=== PATIENT | male | born 1955 | race Hispanic/Latino ===

== ENCOUNTER 2017-11-21 07:33 | Day surgery (SDC) | payer OTHER ==
[~2017-11-21] VITALS: Ht 162.6 cm; Wt 93.9 kg
[~2017-11-21 07:33] MED LIST: LISI-613 PO; SODIUM CHLORIDE 0.9% 1000ML 1,000 ML IV ONE
[2017-11-21 07:50] VITALS: BP 132/75
[2017-11-21] MEDS ORDERED: PROPOFOL 10 MG/ML 20ML VIAL IV ONE ×3 (09:03→11:47)
[2017-11-21 09:25] VITALS: BP 87/41
[2017-11-21] MEDS ORDERED: ONDANSETRON HCL 4 MG/2 ML VIAL ONE (11:46)
[2017-11-21] MEDS ORDERED: MIDAZOLAM HCL 1 MG/ML 2ML VIAL ONE (11:46)
[2017-11-21] MEDS ORDERED: SUCCINYLCHOLINE 200MG/10ML SYR ONE (11:46)
[2017-11-21] MEDS ORDERED: LIDOCAINE PF 2% 5ML ABBOJECT ONE (11:46)
[2017-11-21] MEDS ORDERED: DEXAMETHASONE SOD PHOSPHATE 10MG/ML 1ML VIAL ONE (11:46)
[2017-11-21] MEDS ORDERED: GLYCOPYRROLATE 0.2 MG/ML 5 ML VIAL ONE (11:46)
[2017-11-21] MEDS ORDERED: FENTANYL CITRATE PF 50 MCG/1 ML 2ML VIAL ONE (11:47)
== END 2017-11-21 10:10 | disposition home or self-care (01) ==
LOC: DAH 07:33
PROVIDERS: ATTEND Internal Medicine Gastroenterology
DX: K29.50 Unspecified chronic gastritis without bleeding (principal); K21.9 Gastro-esophageal reflux disease without esophagitis; I10 Essential (primary) hypertension; E78.5 Hyperlipidemia, unspecified; Z90.49 Acquired absence of other specified parts of digestive tract; Z79.899 Other long term (current) drug therapy; Z86.010 Personal history of colon polyps
CPT/HCPCS: 43239; 45378; 88305; A4606; J0330; J1100; J2001; J2405; J2704 ×2; J3490; J7030; J2250; J3010

== ENCOUNTER 2018-01-02 06:37 | Day surgery (SDC) | payer OTHER ==
[~2018-01-02] VITALS: Ht 165.1 cm; Wt 93.2 kg
[2018-01-02 06:45] VITALS: BP 143/88
[2018-01-02] MEDS ORDERED: PROPOFOL 10 MG/ML 20ML VIAL IV ONE (07:45)
[2018-01-02 08:02] VITALS: BP 110/64
== END 2018-01-02 08:35 ==
LOC: ENDO 06:37 → DAH 06:37 → ENDO 08:35
PROVIDERS: ATTEND Internal Medicine Gastroenterology
DX: Z09 Encounter for follow-up examination after completed treatment for conditions other than malignant neoplasm (principal); Z98.0 Intestinal bypass and anastomosis status; K57.30 Diverticulosis of large intestine without perforation or abscess without bleeding; I10 Essential (primary) hypertension; K21.9 Gastro-esophageal reflux disease without esophagitis; E78.4 Other hyperlipidemia; Z86.010 Personal history of colon polyps; Z90.49 Acquired absence of other specified parts of digestive tract; Z79.899 Other long term (current) drug therapy; K29.50 Unspecified chronic gastritis without bleeding
CPT/HCPCS: 45378; A4606; J2704; J7030 ×2

== ENCOUNTER 2018-02-08 21:03 | Emergency (ER) | payer OTHER ==
[~2018-02-08 21:03] MED LIST changes: -SODIUM CHLORIDE 0.9% 1000ML 1,000 ML IV ONE
[2018-02-08] MEDS ORDERED: SODIUM CHLORIDE 0.9% 1000ML 1,000 ML IV ONE (21:46)
[2018-02-08] MEDS ORDERED: HYOSCYAMINE SULFATE 0.125 MG TAB.SUBL SL ONE (21:46)
[2018-02-08] MEDS ORDERED: ONDANSETRON HCL MDV 20ML 2 MG/ML VIAL ONE (21:46)
[2018-02-08 21:50] LABS: BASOPHILS % (AUTO) 0.3 % (0.0-5.0); EOSINOPHILS % (AUTO) 0.6 % (0.0-8.0); HEMATOCRIT 42.7 % (42-54); LYMPHOCYTES % (AUTO) 9.9 % (21.0-51.0); MEAN CORPUSCULAR HEMOGLOBIN 32.4 pg (27.0-33.0); MEAN CORPUSCULAR HGB CONC 35.4 g/dL (32.0-36.0); MEAN CORPUSCULAR VOLUME 91.5 fL (79-99); MONOCYTES % (AUTO) 7.4 % (3.0-13.0); NEUTROPHILS % (AUTO) 81.8 % (40.0-77.0); PLATELET COUNT (AUTO) 150 K/uL (130-400); RED BLOOD CELL COUNT(AUTO) 4.66 MIL/uL (4.50-6.20); RED CELL DISTRIBUTION WIDTH 13.9 % (11.0-15.5); WHITE BLOOD COUNT (AUTO) 7.6 K/uL (4.8-10.8)
[2018-02-08 22:14] LABS: CREATININE 0.9 mg/dL (0.5-1.5); POTASSIUM 3.8 mmol/L (3.5-5.1)
== END 2018-02-08 22:50 | disposition home or self-care (01) ==
LOC: EDH 21:03
DX: E86.0 Dehydration (principal); R10.84 Generalized abdominal pain; R19.7 Diarrhea, unspecified; Z79.899 Other long term (current) drug therapy
CPT/HCPCS: 36415; 80048; 85025; 96361; 96374; 99284; J7030

== ENCOUNTER 2021-01-26 03:54 | Emergency (ER) | payer OTHER ==
[~2021-01-26 03:54] MED LIST changes: -LISI-613 PO; +LISI20TA24 PO
== END 2021-01-26 05:50 | disposition home or self-care (01) ==
LOC: EDH 03:54
DX: I10 Essential (primary) hypertension (principal); Z90.49 Acquired absence of other specified parts of digestive tract; Z88.1 Allergy status to other antibiotic agents
CPT/HCPCS: 93005; 99281

== ENCOUNTER 2022-08-02 09:19 | Emergency (ER) | payer BC, OTHER ==
[~2022-08-02] VITALS: Ht 167.6 cm; Wt 95.3 kg
[2022-08-02] MEDS ORDERED: ACETAMINOPHEN 500 MG TABLET PO STA (09:40)
[2022-08-02 09:57] LABS: BASOPHILS % (AUTO) 1.2 % (0.0-5.0); HEMATOCRIT 43.7 % (42-54); MEAN CORPUSCULAR HEMOGLOBIN 31.1 pg (27.0-33.0); MEAN CORPUSCULAR VOLUME 94.4 fL (79-99); NEUTROPHILS % (AUTO) 60.5 % (40.0-77.0); PLATELET COUNT (AUTO) 168 K/uL (130-400); RED BLOOD CELL COUNT(AUTO) 4.63 MIL/uL (4.50-6.20); RED CELL DISTRIBUTION WIDTH 12.7 % (11.0-15.5)
[2022-08-02] MEDS ORDERED: 0.9%NACL 1000ML 1,000 ML IV ONE (10:00)
[2022-08-02 10:15] LABS: APPEARANCE,URINE CLEAR (CLEAR); BILIRUBIN,URINE NEGATIVE (NEGATIVE); COLOR,URINE LIGHT-YELLOW (YELLOW); GLUCOSE, URINE (UA) NEGATIVE (NEGATIVE); KETONES,URINE NEGATIVE (NEGATIVE); LEUKOCYTE ESTERASE ,URINE NEGATIVE Leu/uL (NEGATIVE); NITRATE,URINE NEGATIVE (NEGATIVE); OCCULT BLOOD,URINE NEGATIVE (NEGATIVE); PROTEIN,URINE NEGATIVE (NEGATIVE); UROBILINOGEN,URINE 0.2 mg/dL (0.2-1.0)
[2022-08-02 10:21] LABS: CREATININE 0.9 mg/dL (0.5-1.5); POTASSIUM 4.3 mmol/L (3.5-5.1)
[2022-08-02 10:26] LABS: TOTAL PROTEIN, SERUM 7.8 g/dL (6.0-8.3)
[2022-08-02 10:33] LABS: BACTERIA,URINE RARE /HPF (None Seen); MUCUS,URINE RARE LPF (None Seen); RBC,URINE 0-1 /HPF (0-1); SQUAMOUS EPITHELIAL CELL,UR RARE /HPF (0-2)
[2022-08-02] MEDS ORDERED: KETOROLAC 30MG VIAL (30MG/ML) IVP STA (14:30)
[2022-08-02] MEDS ORDERED: NAPR375T6 PO (15:02)
[2022-08-02 15:04] VITALS: BP 129/89
== END 2022-08-02 15:08 | disposition home or self-care (01) ==
LOC: EDH 09:19
DX: M94.0 Chondrocostal junction syndrome [Tietze] (principal); I10 Essential (primary) hypertension; Z79.1 Long term (current) use of non-steroidal anti-inflammatories (NSAID); Z88.1 Allergy status to other antibiotic agents; Z90.49 Acquired absence of other specified parts of digestive tract
CPT/HCPCS: 99284; 74176; 96374; 96361; 84484; 80053; 83690; 85025; 81001; 36415; 93005; J7030; J1885; 96360

== ENCOUNTER 2023-07-19 22:15 | Emergency (ER) | payer BC ==
[~2023-07-19] VITALS: Ht 167.6 cm; Wt 95.3 kg
[~2023-07-19 22:15] MED LIST changes: +NAPR375T6 PO
[2023-07-19 22:39] LABS: BASOPHILS # (AUTO) 0.04 K/uL (0.00-0.20); BASOPHILS % (AUTO) 0.6 % (0.0-5.0); EOSINOPHILS # (AUTO) 0.25 K/uL (0.00-0.70); EOSINOPHILS % (AUTO) 3.8 % (0.0-8.0); HEMATOCRIT 42.4 % (42-54); IMMATURE GRANULOCYTE ABSOLUTE 0.03 K/uL (0-1); LYMPHOCYTES # (AUTO) 1.9 K/uL (1.0-4.8); LYMPHOCYTES % (AUTO) 28.1 % (21.0-51.0); MEAN CORPUSCULAR VOLUME 94.2 fL (79-99); MONOCYTES # (AUTO) 0.6 K/uL (0.1-1.0); MONOCYTES % (AUTO) 8.6 % (3.0-13.0); NEUTROPHILS # (AUTO) 3.9 K/uL (1.8-7.7); NEUTROPHILS % (AUTO) 58.4 % (40.0-77.0); PLATELET COUNT (AUTO) 166 K/uL (130-400); RED CELL DISTRIBUTION WIDTH 12.9 % (11.0-15.5); WHITE BLOOD COUNT (AUTO) 6.6 K/uL (4.8-10.8)
[2023-07-19 22:49] LABS: CREATININE 1.1 mg/dL (0.5-1.5); POTASSIUM 3.7 mmol/L (3.5-5.1)
[2023-07-19 22:54] LABS: SARS-CoV-2, RNA, NAAT NEGATIVE SARS CoV-2 (NEGATIVE)
[2023-07-19 22:57] LABS: INFLUENZA TYPE A Negative For Type A (NEGATIVE); INFLUENZA TYPE B Negative For Type B (NEGATIVE)
[2023-07-19 22:59] LABS: ALBUMIN 3.7 g/dL (3.5-5.0); BILIRUBIN,TOTAL 0.2 mg/dL (0.2-1.0); MAGNESIUM 1.9 mg/dL (1.80-2.40); TOTAL PROTEIN, SERUM 7.5 g/dL (6.0-8.3)
[2023-07-19 23:01] LABS: B-TYPE NATRIURETIC PEPTIDE 28 pg/mL (0-100)
[2023-07-20 00:20] VITALS: BP 152/68; PULSE 67; RESP 19; O2SAT 97
[2023-07-20] MEDS ORDERED: OMEP40CA21 PO (00:46)
== END 2023-07-20 01:08 | disposition home or self-care (01) ==
LOC: EDH 22:15
DX: R07.89 Other chest pain (principal); I10 Essential (primary) hypertension; Z79.899 Other long term (current) drug therapy; Z88.1 Allergy status to other antibiotic agents; Z90.49 Acquired absence of other specified parts of digestive tract; Z20.822 Contact with and (suspected) exposure to COVID-19
CPT/HCPCS: 99284; 71045; 87635; 82550; 83735; 83874; 84484 ×2; 80053; 83880; 85025; 85378; 87804 ×2; 36415; 93005 ×2; C9803

== ENCOUNTER 2024-02-17 16:53 | Emergency (ER) | payer BC ==
[~2024-02-17] VITALS: Ht 167.6 cm; Wt 90.7 kg
[~2024-02-17 16:53] MED LIST changes: +OMEP40CA21 PO
[2024-02-17 17:20] LABS: BASOPHILS # (AUTO) 0.06 K/uL (0.00-0.20); EOSINOPHILS # (AUTO) 0.17 K/uL (0.00-0.70); EOSINOPHILS % (AUTO) 2.8 % (0.0-8.0); HEMATOCRIT 42.4 % (42-54); IMMATURE GRANULOCYTE ABSOLUTE 0.07 K/uL (0-1); LYMPHOCYTES # (AUTO) 1.9 K/uL (1.0-4.8); LYMPHOCYTES % (AUTO) 32.4 % (21.0-51.0); MEAN CORPUSCULAR HEMOGLOBIN 31.9 pg (27.0-33.0); MEAN CORPUSCULAR HGB CONC 34.2 g/dL (32.0-36.0); MEAN CORPUSCULAR VOLUME 93.4 fL (79-99); MONOCYTES # (AUTO) 0.4 K/uL (0.1-1.0); NEUTROPHILS # (AUTO) 3.4 K/uL (1.8-7.7); NEUTROPHILS % (AUTO) 56.6 % (40.0-77.0); PLATELET COUNT (AUTO) 196 K/uL (130-400); RED BLOOD CELL COUNT(AUTO) 4.54 MIL/uL (4.50-6.20); RED CELL DISTRIBUTION WIDTH 13.4 % (11.0-15.5)
[2024-02-17 17:46] LABS: CREATININE 1.2 mg/dL (0.5-1.3); POTASSIUM 4.1 mmol/L (3.5-5.1)
[2024-02-17 17:55] LABS: ALBUMIN 3.9 g/dL (3.5-5.0); BILIRUBIN,TOTAL 0.3 mg/dL (0.2-1.0); TOTAL PROTEIN, SERUM 7.6 g/dL (6.0-8.3)
[2024-02-17 18:30] VITALS: BP 132/69; PULSE 67; RESP 18; O2SAT 99
[2024-02-17] MEDS: 0.9%NACL 1000ML 1,000 ML IV ONE (18:40)
[2024-02-17] MEDS ORDERED: AMOX1TAB16 PO (19:07)
[2024-02-17] MEDS ORDERED: LORA10TA7 PO (19:07)
[2024-02-17] MEDS ORDERED: FLUT16H NASAL (19:07)
== END 2024-02-17 19:52 | disposition home or self-care (01) ==
LOC: EDH 16:53
DX: J32.9 Chronic sinusitis, unspecified (principal); E86.0 Dehydration; I10 Essential (primary) hypertension; Z90.49 Acquired absence of other specified parts of digestive tract; Z79.899 Other long term (current) drug therapy; Z98.890 Other specified postprocedural states; Z88.8 Allergy status to other drugs, medicaments and biological substances
CPT/HCPCS: 99284; 96360; 84484; 80053; 85025; 36415; 93005; J7030

== ENCOUNTER 2024-09-02 12:35 | Emergency (ER) | payer BC ==
[~2024-09-02] VITALS: Ht 162.6 cm; Wt 95.8 kg
[~2024-09-02 12:35] MED LIST changes: +AMOX1TAB16 PO; +FLUT16H NASAL; +LORA10TA7 PO; +NAPR-1505 PO; -NAPR375T6 PO
--- NOTE | 2024-09-02 12:43 | ERN ---
ED Note History of Present Illness Stated Complaint: CHEST PAIN Chief Complaint: Chest Pain Time Seen by MD: 12:39 Dictation: PATIENT IS A 69-YEAR-OLD MALE COMING IN TODAY WITH COMPLAINTS OF ONSET OF ACUTE CHEST PRESSURE ANXIETY ONSET THIS MORNING APPROXIMATELY 0 800. 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 Allergies: Coded Allergies: ciprofloxacin (Unverified Allergy, Unknown, 09/14/19) Home Meds Active Scripts Fluticasone Propionate (Flonase Nasal [place]) 50 Mcg/Actuation [place], 50 MCG NASAL BID for 7 Days, #60 SPRAY Prov:AGNIESZKA LAMB MD 02/17/24 Loratadine (Loratadine) 10 Mg Tablet, 10 MG PO DAILY for 30 Days, #30 TAB Prov:AGNIESZKA LAMB MD 02/17/24 Amoxicillin/Potassium Clav (Amox Tr-K Clv 875-125 mg Tab) 875 Mg-125 Mg Tablet, 1 EACH PO BID for 7 Days, #14 TAB Prov:AGNIESZKA LAMB MD 02/17/24 Omeprazole (Omeprazole) 40 Mg Capsule., 40 MG PO DAILY, #30 CAP Prov:DANIEL CALL MD 07/20/23 Naproxen (Naproxen) 375 Mg Tablet., 375 MG PO BID for 10 Days, #20 TAB Prov:AGNIESZKA LAMB MD 08/02/22 Reported Medications Lisinopril (Lisinopril) 20 Mg Tablet, 20 MG PO DAILY, TAB 01/16/15 Past Medical History Past Medical History: Hypertension Surgical History: Cholecystectomy Surgical History Other: ABD SX PSYCH History: no pertinent psych hx Family History: Negative Social History: Negative, Lives with family RN Note Reviewed/Agreed w/PFSH: Yes Review of System Dictation CONSTITUTIONAL: NEGATIVE EXCEPT FOR HPI HEAD/FACE: NEGATIVE EXCEPT FOR HPI EENT: NEGATIVE EXCEPT FOR HPI RESPIRATORY: NEGATIVE EXCEPT FOR HPI CHEST PRESSURE GASTROINTESTINAL/ABDOMINAL: NEGATIVE EXCEPT FOR HPI GENITOURINARY: NEGATIVE EXCEPT FOR HPI MUSCULOSKELETAL: NEGATIVE EXCEPT FOR HPI INTEGUMENTARY: NEGATIVE EXCEPT FOR HPI NEUROLOGICAL/PSYCH: NEGATIVE EXCEPT FOR HPI HEMATOLOGIC/LYMPHATIC: NEGATIVE EXCEPT FOR HPI ALL SYSTEMS NEGATIVE, EXCEPT NOTED ABOVE. 13 POINT REVIEW OF SYSTEMS ASSESSED AND ALL NEGATIVE EXCEPT FOR ABOVE. Initial Vital Sign VS Vital Signs Date Time Temp Pulse Resp B/P (MAP) Pulse Ox O2 Delivery O2 Flow Rate FiO2 09/02/24 12:38 100 Room Air 0 09/02/24 13:01 81 20 147/72 21 Physical Exam Dictation VITAL SIGNS REVIEWED GENERAL APPEARANCE: ALERT, ORIENTED X 3, ANXIOUS ACUTE DISTRESS, WELL DEVELOPED, NOURISHED. HEAD AND FACE: NON-TRAUMATIC. EYES: PERRL, PINK CONJUNCTIVAS, EYELID NO TRAUMA, ANTERIOR CHAMBER WITH ARCUS SENILIS. EARS: PINNAS INTACT AND NO SIGNS OF TRAUMA OR ERYTHEMA EAR CANALS CLEAR AND NO DISCHARGE TM NO ERYTHEMA NOSE: NO DISCHARGE, NO BLEEDING. OROPHARYNX: MOUTH NORMAL, TONGUE PINK, PHARYNX CLEAR,NO ERYTHEMA, TONSILS NO EXUDATES, NO ABSCESSES NOTED, MUCOUS MEMBRANE MOIST NECK: SUPPLE, NON-TENDER, NO THYROMEGALY, NO MASSES, NO JVD, NO BRUITS BREAST:DEFERRED CHEST:NO TENDERNESS, NO CREPITUS, NO PARADOXICAL MOVEMENT, NO RETRACTIONS LUNGS:CLEAR, WELL-VENTILATED, SYMMETRIC, NO RALES, NO WHEEZING, NO RHONCHI, NO STRIDOR, GOOD BREATH SOUNDS BILATERALLY HEART: REGULAR RATE, REGULAR RHYTHM, NO MURMUR, NO GALLOPS VASCULAR: NO PERIPHERAL EDEMA, ABDOMEN: SOFT, POSITIVE BOWEL SOUNDS, NONDISTENDED, NO GUARDING, NONTENDER, NO REBOUND, NO MASSES NO HEPATOMEGALY, NO SPLENOMEGALY, NO ORTIZ'S SIGN, NO HERNIAS. RECTAL: DEFERRED GENITAL: DEFERRED NEUROLOGICAL: NORMAL SPEECH, MOTOR FUNCTION INTACT, SENSORY FUNCTION INTACT MUSCULOSKELETAL: NECK NONTENDER, FULL RANGE OF MOTION, BACK NONTENDER, FULL RANGE OF MOTION, EXTREMITIES: NONTENDER, FULL RANGE OF MOTION SKIN: COLOR PINK, DRY, NO TURGOR, NO RASH, NO LACERATIONS, NO ABRASIONS, NO CONTUSIONS. LYMPHATIC: DEFERRED Results (Laboratory/Radiology) Laboratory/Radiology Laboratory Tests Test 09/02/24 12:50 09/02/24 13:12 09/02/24 13:20 White Blood Count 4.2 K/uL (4.8-10.8) L Red Blood Count 4.63 MIL/uL (4.50-6.20) Hemoglobin 14.8 g/dL (14.0-18.0) Hematocrit 43.6 % (42-54) Mean Corpuscular Volume 94.2 fL (79-99) Mean Corpuscular Hemoglobin 32.0 pg (27.0-33.0) Mean Corpuscular Hemoglobin Concent 33.9 g/dL (32.0-36.0) Red Cell Distribution Width 12.8 % (11.0-15.5) Platelet Count 125 K/uL (130-400) L Mean Platelet Volume 9.6 fL (7.5-10.5) Immature Granulocyte % (Auto) 0.5 % (0-1) Neutrophils (%) (Auto) 79.4 % (40.0-77.0) H Lymphocytes (%) (Auto) 10.2 % (21.0-51.0) L Monocytes (%) (Auto) 5.7 % (3.0-13.0) Eosinophils (%) (Auto) 3.3 % (0.0-8.0) Basophils (%) (Auto) 0.9 % (0.0-5.0) Neutrophils # (Auto) 3.4 K/uL (1.8-7.7) Lymphocytes # (Auto) 0.4 K/uL (1.0-4.8) L Monocytes # (Auto) 0.2 K/uL (0.1-1.0) Eosinophils # (Auto) 0.14 K/uL (0.00-0.70) Basophils # (Auto) 0.04 K/uL (0.00-0.20) Absolute Immature Granulocyte (auto 0.02 K/uL (0-1) Nucleated Red Blood Cells 0.0 % (0.0-0.19) Sodium Level 139 mmol/L (136-145) Potassium Level 3.7 mmol/L (3.5-5.1) Chloride Level 101 mmol/L (101-111) Carbon Dioxide Level 29 mmol/L (21-32) Blood Urea Nitrogen 12 mg/dL (7-18) Creatinine 1.0 mg/dL (0.5-1.3) Glomerular Filtration Rate Calc 81 mL/min (>90) Random Glucose 133 mg/dL (70-105) H Total Calcium 8.8 mg/dL (8.5-10.1) Total Creatine Kinase 90 U/L (21-232) B-Type Natriuretic Peptide 35 pg/mL (0-100) Urine Color COLORLESS (YELLOW) Urine Appearance CLEAR (CLEAR) Urine pH 6.0 (5.0-8.0) Urine Specific [place] 1.008 (1.001-1.031) Urine Protein NEGATIVE mg/dL (NEGATIVE) Urine Glucose (UA) NEGATIVE mg/dL (NEGATIVE) Urine Ketones NEGATIVE mg/dL (NEGATIVE) Urine Occult Blood NEGATIVE (NEGATIVE) Urine Nitrate NEGATIVE (NEGATIVE) Urine Bilirubin NEGATIVE mg/dL (NEGATIVE) Urine Urobilinogen 0.2 mg/dL (0.2-1.0) Urine Leukocyte Esterase NEGATIVE [place]/uL Troponin I < 0.05 ng/mL (0.00-0.05) CHEST 1VW HISTORY: Chest pain COMPARISON: 07/19/2023 FINDINGS: A frontal projection of the chest was obtained. No acute pulmonary infiltrates is seen. The heart is borderline enlarged. Degenerative changes are seen. No evidence of aortic calcification is seen. IMPRESSION: 1. No acute pulmonary infiltrate is seen. Labs Reviewed?: Yes EKG Comment: EKG NORMAL SINUS RHYTHM/HEART RATE 86/AXIS NORMAL/NO ECTOPY ED Course ED Course Orders Procedure Category Date Status Time Vital Signs Per CPOE 09/02/24 Transmitted Routine 12:37 B-Type Natriuretic LAB 09/02/24 Complete Peptide 12:37 Chest 1vw RAD 09/02/24 Resulted 12:37 12 Lead Ekg Tracing- EKG 09/02/24 Complete Technical 12:37 Oxygen By Nc/Pulse Ox CPOE 09/02/24 Transmitted 12:37 Maintain Iv CPOE 09/02/24 Transmitted 12:37 Iv Insertion CPOE 09/02/24 Transmitted 12:37 Cardiac Monitoring CPOE 09/02/24 Transmitted 12:37 Pulse Oximetry With CPOE 09/02/24 Transmitted Vs And Prn 12:37 Cbc With Differential LAB 09/02/24 Complete 12:37 Activity: Br W/Brp CPOE 09/02/24 Transmitted With Assist 12:37 Creatine Kinase, Total LAB 09/02/24 Complete 12:37 Urinalysis Profile LAB 09/02/24 Complete 12:37 Troponin Poc Order LAB 09/02/24 Complete Only 12:37 Bedside Troponin-I LAB.ER 09/02/24 In Process (Poc) 12:37 Basic Metabolic Panel LAB 09/02/24 Complete 12:37 Aspirin 325mg Tab PHA 09/02/24 Complete (Aspirin 325mg Tab) 13:00 Current Medications Medications (Trade) Dose Ordered Sig/Mik Route PRN Reason Start Time Stop Time Status Last Admin Dose Admin Aspirin (Aspirin 325mg Tab) 325 mg ONCE ONCE PO 09/02/24 13:00 09/02/24 13:01 DC 09/02/24 14:15 Vital Signs Date Time Temp Pulse Resp B/P (MAP) Pulse Ox O2 Delivery O2 Flow Rate FiO2 09/02/24 13:01 81 20 147/72 99 Room Air* 0 21 09/02/24 12:38 100 Room Air 0 FOURTEEN 40, NO COMPLAINTS OF AT THIS TIME. CHEST PRESSURE IS GONE. PATIENT IS AWARE HIS CARDIAC WORKUP CHEST X-RAY ETC. COMPLETELY NORMAL EKG NORMAL DISCHARGED HOME WITH ANXIETY REACTION AND TOLD TO SEE HIS PRIMARY CARE DOCTOR. HEART Score Response (Comments) Value History: Low suspicion (0) 0 Age: > 65yrs (+2) 2 Risk Factors: 1-2 risk factors (+1) 1 Initial Troponin: Normal limit (0) 0 Total 3 Medical Decision Making MDM MDM: DIFFERENTIAL DIAGNOSIS: ACS/AMI/ATYPICAL CHEST PAIN/BRONCHITIS/PNEUMONIA/ELECTROLYTE IMBALANCE/PANIC ATTACK RATIONALE: TESTS CONSIDERED AND ORDERED SECONDARY TO SHARED DECISION MAKING INCLUDE: EKG/LABS/RADIOLOGY PREVIOUS OUTSIDE RECORDS REVIEWED: OLD ER VISITS. REVIEWED RISK OF COMPLICATION AND/OR MORBIDITY OR MORTALITY OF PATIENT MANAGEMENT: NONE MEDICATIONS-PER MEDICATION RECONCILIATION SEE NURSE'S NOTES NEED FOR HOSPITALIZATION: PATIENT DOES NOT MEET CRITERIA FOR HOSPITALIZATION. NONE NEED FOR EMERGENCY MAJOR/MINOR SURGERY: NO THERE ARE NO SOCIAL CONCERNS WITH THIS PATIENT. PRESCRIPTION DRUG MANAGEMENT NONE PRESCRIPTIONS WILL INCLUDE SYMPTOMATIC CARE PATIENT'S PRIOR EXTERNAL MEDICAL RECORDS FROM OTHER ER VISITS WERE REVIEWED BY ME INDICATED. PRIOR TESTING AND RESULTS FROM PREVIOUS VISITS WERE REVIEWED. PRIOR TESTS WERE TAKEN INTO ACCOUNT WITH MEDICAL DECISION MAKING AND RESOURCE UTILIZATION, INDEPENDENT HISTORIAN/HISTORIANS WERE USED TO OBTAIN COMPLETE MEDICAL HISTORY. I INDEPENDENTLY INTERPRETED THE TEST THAT WERE PERFORMED, RESULTS WERE REVIEWED BY ME AND CONSIDERED FINDINGS ON RADIOLOGY IF ORDERED. MEDICAL MANAGEMENT AND EXAMINATION INTERPRETATION DISCUSSIONS WERE HAD BY ME WITH OTHER QUALIFIED HEALTHCARE PROFESSIONALS INDICATED FOR THE PATIENT'S CARE. DX & DISP Disposition: Discharge Departure Impression: Primary Impression: Atypical chest pain Additional Impressions: Panic attack, Hyperglycemia Condition: Stable Additional Instructions: FOLLOW-UP WITH PRIMARY CARE PROVIDER IN 1 TO 2 DAYS. TAKE MEDICATIONS DIRECTED HERE IN THE EMERGENCY ROOM. OKAY TO CONTINUE HOME MEDICATIONS UNLESS OTHERWISE DISCUSSED DURING YOUR VISIT IN THE EMERGENCY ROOM TODAY. RETURN TO YOUR NEAREST EMERGENCY ROOM IF SYMPTOMS WORSEN OR IF THERE IS NO IMPROVEMENT. CALL 911 IF YOU NEED IMMEDIATE ASSISTANCE. TAKE TYLENOL OR MOTRIN OVER-THE- COUNTER NEEDED AND IF NO CONTRAINDICATIONS ARE PRESENT. INCREASE ORAL HYDRATION. A WOUND CULTURE OR URINE CULTURE WAS ORDERED HERE IN THE EMERGENCY ROOM DEPARTMENT PLEASE FOLLOW-UP WITH PRIMARY CARE PROVIDER AND ADVISE THEM TO GET REPEAT PORTS FROM OUR FACILITY. IF YOU HAD ANY BETHANY WRAP/SPLINTS THAT WERE APPLIED HERE, PLEASE DO NOT REMOVE THEM UNTIL YOU SEE YOUR PRIMARY CARE OR SPECIALTY. DIET AND ACTIVITY TOLERATED, SEE YOUR PRIMARY CARE DOCTOR FOR FOLLOW UP Referrals: KARIE SHINE MD (PCP) LEYDI SOLORIO NP Sep 02, 2024 12:43
--- NOTE | 2024-09-02 12:46 | EKG ---
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
[2024-09-02 13:05] LABS: BASOPHILS # (AUTO) 0.04 K/uL (0.00-0.20); BASOPHILS % (AUTO) 0.9 % (0.0-5.0); EOSINOPHILS # (AUTO) 0.14 K/uL (0.00-0.70); EOSINOPHILS % (AUTO) 3.3 % (0.0-8.0); HEMATOCRIT 43.6 % (42-54); IMMATURE GRANULOCYTE ABSOLUTE 0.02 K/uL (0-1); LYMPHOCYTES # (AUTO) 0.4 K/uL (1.0-4.8); LYMPHOCYTES % (AUTO) 10.2 % (21.0-51.0); MEAN CORPUSCULAR HGB CONC 33.9 g/dL (32.0-36.0); MEAN CORPUSCULAR VOLUME 94.2 fL (79-99); MONOCYTES # (AUTO) 0.2 K/uL (0.1-1.0); MONOCYTES % (AUTO) 5.7 % (3.0-13.0); NEUTROPHILS # (AUTO) 3.4 K/uL (1.8-7.7); NEUTROPHILS % (AUTO) 79.4 % (40.0-77.0); PLATELET COUNT (AUTO) 125 K/uL (130-400); RED BLOOD CELL COUNT(AUTO) 4.63 MIL/uL (4.50-6.20); RED CELL DISTRIBUTION WIDTH 12.8 % (11.0-15.5); WHITE BLOOD COUNT (AUTO) 4.2 K/uL (4.8-10.8)
[2024-09-02 13:13] LABS: POTASSIUM 3.7 mmol/L (3.5-5.1)
[2024-09-02 13:29] LABS: APPEARANCE,URINE CLEAR (CLEAR); BILIRUBIN,URINE NEGATIVE (NEGATIVE); COLOR,URINE COLORLESS (YELLOW); GLUCOSE, URINE (UA) NEGATIVE (NEGATIVE); KETONES,URINE NEGATIVE (NEGATIVE); LEUKOCYTE ESTERASE ,URINE NEGATIVE Leu/uL (NEGATIVE); NITRATE,URINE NEGATIVE (NEGATIVE); OCCULT BLOOD,URINE NEGATIVE (NEGATIVE); PROTEIN,URINE NEGATIVE (NEGATIVE); UROBILINOGEN,URINE 0.2 mg/dL (0.2-1.0)
--- NOTE | 2024-09-02 13:55 | HMCIMG ---
CHEST 1VW HISTORY: Chest pain COMPARISON: 07/19/2023 FINDINGS: A frontal projection of the chest was obtained. No acute pulmonary infiltrates is seen. The heart is borderline enlarged. Degenerative changes are seen. No evidence of aortic calcification is seen. IMPRESSION: 1. No acute pulmonary infiltrate is seen.
[2024-09-02 14:04] LABS: B-TYPE NATRIURETIC PEPTIDE 35 pg/mL (0-100)
[2024-09-02 14:08] LABS: ADD UA MICROSCOPIC NO
[2024-09-02] MEDS: ASPIRIN 325MG TAB PO ONE (14:15)
[2024-09-02 15:17] VITALS: BP 113/63; PULSE 70; RESP 18; TEMP 97.9; O2SAT 99
== END 2024-09-02 15:18 | disposition home or self-care (01) ==
LOC: EDH 12:35
DX: R07.89 Other chest pain (principal); F41.0 Panic disorder [episodic paroxysmal anxiety]; R73.9 Hyperglycemia, unspecified; I10 Essential (primary) hypertension; Z79.899 Other long term (current) drug therapy; Z88.1 Allergy status to other antibiotic agents; Z90.49 Acquired absence of other specified parts of digestive tract
CPT/HCPCS: 36415; 71045; 80048; 81003; 82550; 83880; 84484; 85025; 93005; 99284

== ENCOUNTER 2025-03-19 18:25 | Emergency (ER) | payer BC, OTHER ==
[~2025-03-19] VITALS: Ht 170.2 cm; Wt 95.3 kg
[2025-03-19 18:43] LABS: BASOPHILS # (AUTO) 0.04 K/uL (0.00-0.20); BASOPHILS % (AUTO) 0.9 % (0.0-5.0); EOSINOPHILS # (AUTO) 0.16 K/uL (0.00-0.70); EOSINOPHILS % (AUTO) 3.6 % (0.0-8.0); HEMATOCRIT 41.3 % (42-54); IMMATURE GRANULOCYTE ABSOLUTE 0.02 K/uL (0-1); LYMPHOCYTES # (AUTO) 0.8 K/uL (1.0-4.8); LYMPHOCYTES % (AUTO) 16.8 % (21.0-51.0); MEAN CORPUSCULAR HEMOGLOBIN 31.9 pg (27.0-33.0); MEAN CORPUSCULAR HGB CONC 33.9 g/dL (32.0-36.0); MEAN CORPUSCULAR VOLUME 94.1 fL (79-99); MONOCYTES # (AUTO) 0.4 K/uL (0.1-1.0); MONOCYTES % (AUTO) 8.3 % (3.0-13.0); NEUTROPHILS # (AUTO) 3.1 K/uL (1.8-7.7); PLATELET COUNT (AUTO) 155 K/uL (130-400); RED BLOOD CELL COUNT(AUTO) 4.39 MIL/uL (4.50-6.20); RED CELL DISTRIBUTION WIDTH 12.6 % (11.0-15.5); WHITE BLOOD COUNT (AUTO) 4.5 K/uL (4.8-10.8)
[2025-03-19 18:53] LABS: CREATININE 0.6 mg/dL (0.5-1.3); POTASSIUM 3.9 mmol/L (3.5-5.1)
[2025-03-19 19:26] VITALS: TEMP 98.4
--- NOTE | 2025-03-19 19:26 | HMCIMG ---
Exam Type: CHEST 1VW Clinical Information: cp Comparison: None Findings: The lungs are clear of infiltrates. The heart is normal in size. The bony and soft tissue structures of the chest are unremarkable. Impression: Clear lungs.
[2025-03-19] MEDS: ASPIRIN 325MG TAB PO ONE (19:59)
--- NOTE | 2025-03-19 21:25 | HMCIMG ---
Exam Type: CT HEAD/BRAIN W/O CONTRAST Clinical Information: hypertension Comparison: None CT Dose Index (CTDI): 57.33 mGy Dose Length Product (DLP): 956.79 total mGy-cm Findings: The examination is unremarkable. Jean-Baptiste-white matter junction is preserved. No intra or extra axial lesions or fluid collections are seen. Specifically, jean-baptiste and white matter are normal in signal characteristics with normal caliber of ventricles and periventricular cisterns with no evidence of intra or or extra-axial hemorrhage, lacunar infarct, or major territorial infarct, mass, or other abnormality. There are no infarcts. There are no hemorrhages. Periventricular white matter locations are preserved. The orbital contents and structures of the posterior fossa are intact. Impression: Normal CT of the head. This study was performed using dose reduction techniques to include automated exposure control and/or adjustment of the mA and/or kV according to patient size.
--- NOTE | 2025-03-19 22:36 | ERN ---
General Chief Complaint: Chest Pain Stated Complaint: CHEST PAIN Time Seen by MD: 18:29 Time Seen by Midlevel: 18:29 Source: patient History of Present Illness Initial Comments The patient is a 69-year-old male with a past medical history of prostate cancer and hypertension presenting to the emergency department for evaluation of chest pressure and nausea that started a proximally 1 hour prior to arrival. The patient states that during this time his blood pressure was elevated. Allergies: Coded Allergies: ciprofloxacin (Unverified Allergy, Unknown, 09/14/19) Home Meds Active Scripts Fluticasone Propionate (Flonase Nasal [place]) 50 Mcg/Actuation [place], 50 MCG NASAL BID for 7 Days, #60 SPRAY Prov:AGNIESZKA LAMB MD 02/17/24 Loratadine (Loratadine) 10 Mg Tablet, 10 MG PO DAILY for 30 Days, #30 TAB Prov:AGNIESZKA LAMB MD 02/17/24 Amoxicillin/Potassium Clav (Amox Tr-K Clv 875-125 mg Tab) 875 Mg-125 Mg Tablet, 1 EACH PO BID for 7 Days, #14 TAB Prov:AGNIESZKA LAMB MD 02/17/24 Omeprazole (Omeprazole) 40 Mg Capsule.dr, 40 MG PO DAILY, #30 CAP Prov:DANIEL CALL MD 07/20/23 Naproxen (Naproxen) 375 Mg Tablet.dr, 375 MG PO BID for 10 Days, #20 TAB Prov:AGNIESZKA LAMB MD 08/02/22 Reported Medications Lisinopril (Lisinopril) 20 Mg Tablet, 20 MG PO DAILY, TAB 01/16/15 Past Medical History Past Medical History: Hypertension Medical History Other: PROSTATE CX Past Surgical History: Cholecystectomy Surgical History Other: ABD SX Family History Family History: Negative Social History Social History: Negative, Lives with family ROS Dictation CONSTITUTIONAL: Negative except for HPI HEAD/FACE: Negative except for HPI EENT: Negative except for HPI RESPIRATORY: Negative except for HPI GASTROINTESTINAL/ABDOMINAL: Negative except for HPI GENITOURINARY: Negative except for HPI MUSCULOSKELETAL: Negative except for HPI INTEGUMENTARY: Negative except for HPI NEUROLOGICAL/PSYCH: Negative except for HPI HEMATOLOGIC/LYMPHATIC: Negative except for HPI All Systems Negative, Except as noted above. 13 point review of systems assessed and all negative except for above. Physical Exam Physical Exam Dictation Vital Signs reviewed General Appearance: Alert, oriented x 3, no acute distress, well developed, nourished. Head and Face: non-traumatic. Eyes: PERRL, pink conjunctivas, eyelid no trauma, anterior chamber with arcus senilis. Ears: Pinnas intact and no signs of trauma or erythema ear canals clear and no discharge TM no erythema Nose: No discharge, no bleeding. Oropharynx: Mouth normal, tongue pink, pharynx clear,no erythema, tonsils no exudates, no abscesses noted, mucous membrane moist Neck: Supple, non-tender, no thyromegaly, no masses, no JVD, no bruits Breast:Deferred Chest:No tenderness, no crepitus, no paradoxical movement, no retractions Lungs:Clear, well-ventilated, symmetric, no rales, no wheezing, no rhonchi, no stridor, good breath sounds bilaterally Heart: Regular rate, regular rhythm, no murmur, no gallops Vascular: no peripheral edema, Abdomen: Soft, positive bowel sounds, nondistended, no guarding, nontender, no rebound, no masses no hepatomegaly, no splenomegaly, no Perry's sign, no hernias. Rectal: Deferred Genital: Deferred Neurological: Normal speech, motor function intact, sensory function intact Musculoskeletal: Neck nontender, full range of motion, back nontender, full range of motion, Extremities: nontender, full range of motion Skin: Color pink, dry, no turgor, no rash, no lacerations, no abrasions, no contusions. Lymphatic: Deferred Results Laboratory and Microbiology Lab and Micro Result Laboratory Tests Test 03/19/25 18:33 03/19/25 18:40 White Blood Count 4.5 K/uL (4.8-10.8) L Red Blood Count 4.39 MIL/uL (4.50-6.20) L Hemoglobin 14.0 g/dL (14.0-18.0) Hematocrit 41.3 % (42-54) L Mean Corpuscular Volume 94.1 fL (79-99) Mean Corpuscular Hemoglobin 31.9 pg (27.0-33.0) Mean Corpuscular Hemoglobin Concent 33.9 g/dL (32.0-36.0) Red Cell Distribution Width 12.6 % (11.0-15.5) Platelet Count 155 K/uL (130-400) Mean Platelet Volume 9.8 fL (7.5-10.5) Immature Granulocyte % (Auto) 0.4 % (0-1) Neutrophils (%) (Auto) 70.0 % (40.0-77.0) Lymphocytes (%) (Auto) 16.8 % (21.0-51.0) L Monocytes (%) (Auto) 8.3 % (3.0-13.0) Eosinophils (%) (Auto) 3.6 % (0.0-8.0) Basophils (%) (Auto) 0.9 % (0.0-5.0) Neutrophils # (Auto) 3.1 K/uL (1.8-7.7) Lymphocytes # (Auto) 0.8 K/uL (1.0-4.8) L Monocytes # (Auto) 0.4 K/uL (0.1-1.0) Eosinophils # (Auto) 0.16 K/uL (0.00-0.70) Basophils # (Auto) 0.04 K/uL (0.00-0.20) Absolute Immature Granulocyte (auto 0.02 K/uL (0-1) Nucleated Red Blood Cells 0.0 % (0.0-0.19) Sodium Level 140 mmol/L (136-145) Potassium Level 3.9 mmol/L (3.5-5.1) Chloride Level 103 mmol/L (101-111) Carbon Dioxide Level 29 mmol/L (21-32) Blood Urea Nitrogen 14 mg/dL (7-18) Creatinine 0.6 mg/dL (0.5-1.3) Glomerular Filtration Rate Calc 104 mL/min (>90) Random Glucose 104 mg/dL (70-105) Total Calcium 8.8 mg/dL (8.5-10.1) Magnesium Level 2.00 mg/dL (1.80-2.40) Total Creatine Kinase 97 U/L (21-232) Troponin I High Sensitivity 15 ng/L (4-75) KS-Stp-J-Type Natriuretic Peptide 102 pg/mL (0-125) Labs Reviewed?: Yes MDM MDM: Differential diagnosis: Acute coronary syndrome, pneumothorax, pneumonia, There are no social concerns with this patient. Prescription drug management Prescriptions will include: None Medical management and examination interpretation discussions were had by me with other qualified healthcare professionals as indicated for the patient's care. ED Course Orders Procedure Category Date Status Time 12 Lead Ekg Tracing- EKG 03/19/25 Logged Technical 18:29 Cbc With Differential LAB 03/19/25 Complete 18:29 Basic Metabolic Panel LAB 03/19/25 Complete 18:29 Creatine Kinase, Total LAB 03/19/25 Complete 18:29 Magnesium LAB 03/19/25 Complete 18:29 Troponin I High LAB 03/19/25 Complete Sensitivity 18:29 Chest 1vw RAD 03/19/25 Resulted 18:29 Probnp LAB 03/19/25 Complete 18:40 Aspirin 325mg Tab PHA 03/19/25 Complete (Aspirin 325mg Tab) 20:00 Ct Head/Brain W/O CT 03/19/25 Resulted Contrast 19:42 Current Medications Medications (Trade) Dose Ordered Sig/Mik Route PRN Reason Start Time Stop Time Status Last Admin Dose Admin Aspirin (Aspirin 325mg Tab) 325 mg ONCE ONCE PO 03/19/25 20:00 03/19/25 20:01 DC 03/19/25 19:59 Vital Signs Date Time Temp Pulse Resp B/P (MAP) Pulse Ox O2 Delivery O2 Flow Rate FiO2 03/19/25 22:58 62 20 166/82 99 Room Air* 0 03/19/25 19:26 98.4 76 20 158/76 99 Room Air* 0 03/19/25 19:04 98.2 70 18 146/72 98 Room Air* 0 03/19/25 18:36 98.2 70 18 205/90 98 Room Air* 0 03/19/25 18:29 98.2 74 20 205/90 98 Room Air HEART Score Response (Comments) Value History: Low suspicion (0) 0 EKG: Normal 0 Age: > 65yrs (+2) 2 Risk Factors: 1-2 risk factors (+1) 1 Initial Troponin: Normal limit (0) 0 HEART Score Risk: Low Risk for MACE (1-3) Total 3 DX & DISP Disposition: Discharge Departure Impression: Primary Impression: Non-cardiac chest pain Additional Impression: Elevated blood pressure reading Condition: Stable Additional Instructions: Your blood work today is stable. Your EKGs normal. Your chest x-ray is normal. Your cardiac enzymes are negative. Please follow up with your primary care doctor on Friday as scheduled. Return to the ER if you develop any new or worsening symptoms. Referrals: KARIE SHINE MD (PCP) Time of Disposition: 22:35 I have reviewed the case, and I agree with, Diagnosis and Plan I performed the substantive portion of the visit. I have reviewed and personally made and approve the management plan that is documented in the note by myself or the VASQUEZ. I acknowledge for responsibility for the patient's management plan. ISIDRO PALMA Mar 19, 2025 22:36
--- NOTE | 2025-03-19 22:57 | NUR ---
PAED PROVIDER AT [facility]; PATIENT TOOK HOME BP MEDS AT THIS TIME.
[2025-03-19 22:58] VITALS: BP 166/82; PULSE 62; RESP 20; O2SAT 99
--- NOTE | 2025-03-20 08:06 | EKG ---
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
== END 2025-03-19 23:12 | disposition home or self-care (01) ==
LOC: EDH 18:25
DX: R07.89 Other chest pain (principal); I10 Essential (primary) hypertension; Z79.899 Other long term (current) drug therapy; Z85.46 Personal history of malignant neoplasm of prostate; Z88.1 Allergy status to other antibiotic agents; Z90.49 Acquired absence of other specified parts of digestive tract
CPT/HCPCS: 36415; 70450; 71045; 80048; 82550; 83735; 83880; 84484; 85025; 93005; 99285

== ENCOUNTER → 2025-05-23 | Outpatient (CLI) | payer OTHER ==
--- NOTE | 2025-05-24 09:56 | HMCIMG ---
EXAM: CT Cardiac calcium scoring. CLINICAL HISTORY: CAD screening. TECHNIQUE: Thin collimated axial CT cardiac images were obtained. A CT scan is done according to ALARA (As Low As Reasonably Achievable). CONTRAST: None. COMPARISON: None provided. FINDINGS: Calcium Score: VESSEL Number of lesions Volume mm3 Equi. Mass/mg Calcium score LM 0 00.0 --.-- 00.0 LAD 3 13.2 --.-- 12.4 LCX 2 22.6 0.00 18.3 RCA 5 1.9 --.-- 4.6 Total 10 37.6 --.-- 35.3 IMPRESSION: The calcium score is 35.3. This places the patient at the 44th percentile. /[place]
== END | disposition home or self-care (01) ==
LOC: RAH 13:22
PROVIDERS: ATTEND Family Medicine
DX: Z13.6 Encounter for screening for cardiovascular disorders (principal)
CPT/HCPCS: 75571

== ENCOUNTER 2025-08-13 14:26 | Emergency (ER) | payer MEDICARE, OTHER ==
[~2025-08-13] VITALS: Ht 167.6 cm; Wt 93.9 kg
--- NOTE | 2025-08-13 14:43 | ERN ---
General Chief Complaint: Rectal Bleed Stated Complaint: RECTAL PAIN Time Seen by MD: 14:30 History of Present Illness Initial Comments 70-year-old male history of hypertension with a recent diagnosis of hemorrhoids here for evaluation of rectal pain. Patient was seen by his GI doctor were for which they banded his external hemorrhoids. State that they had two bands however 1 May have fallen off. Daughter who is at bedside states that she has a follow up with the GI doctor for which they are going to have a CT scan with the p.o. and IV contrast to evaluate BPH. He has not been having a bowel movement as when he bears down it becomes painful. Allergies: Coded Allergies: ciprofloxacin (Unverified Allergy, Unknown, 09/14/19) Home Meds Active Scripts Fluticasone Propionate (Flonase Nasal [place]) 50 Mcg/Actuation [place], 50 MCG NASAL BID for 7 Days, #60 SPRAY Prov:AGNIESZKA LAMB MD 02/17/24 Loratadine (Loratadine) 10 Mg Tablet, 10 MG PO DAILY for 30 Days, #30 TAB Prov:AGNIESZKA LAMB MD 02/17/24 Amoxicillin/Potassium Clav (Amox Tr-K Clv 875-125 mg Tab) 875 Mg-125 Mg Tablet, 1 EACH PO BID for 7 Days, #14 TAB Prov:AGNIESZKA LAMB MD 02/17/24 Omeprazole (Omeprazole) 40 Mg Capsule., 40 MG PO DAILY, #30 CAP Prov:DANIEL CALL MD 07/20/23 Naproxen (Naproxen) 375 Mg Tablet., 375 MG PO BID for 10 Days, #20 TAB Prov:AGNIESZKA ALMB MD 08/02/22 Reported Medications Lisinopril (Lisinopril) 20 Mg Tablet, 20 MG PO DAILY, TAB 01/16/15 Past Medical History Past Medical History: Cancer, Hypertension Medical History Other: PROSTATE CX Past Surgical History: Cholecystectomy Surgical History Other: ABD SX Family History Family History: Negative Social History Social History: Negative, Lives with family Physical Exam Physical Exam Dictation GENERAL APPEARANCE NAD, activity normal for age, well developed/ well nourished, no cyanosis, pallor, or diaphoresis. EYES lids/conjunctiva normal. EARS/NOSE/THROAT Mucous membranes moist, nares normal, lips/teeth normal uvula midline without oral pharyngeal erythema, exudate or swelling TMs normal bilaterally. No lymphangitis/lymphedema. HEAD/NECK normocephalic atraumatic, no facial trauma, neck is supple. RESPIRATORY respiratory effort normal, speaks in full sentences, no tripod position, no accessory muscle use. Lungs clear to auscultation without rhonchi, wheezes, rales CARDIAC Regular rate and rhythm, no edema. ABDOMINAL Soft, mildly distended. : Rectal exam shows hemorrhoids external. Non thrombosed MUSCLES/EXTREMITIES No abnormal range of motion, no swelling. SKIN Warm, pink and dry. No rashes, dermatoses, petechiae or lesions. NEUROLOGICAL Speech is clear and appropriate. Normal level of consciousness. Gait and coordination are normal. 5/5 strength in all extremities. PSYCH Normal mood and affect. Judgement/competence is appropriate Results Laboratory and Microbiology Lab and Micro Result Laboratory Tests Test 08/13/25 14:46 08/13/25 15:03 White Blood Count 4.6 K/uL (4.8-10.8) L Red Blood Count 4.07 MIL/uL (4.50-6.20) L Hemoglobin 13.3 g/dL (14.0-18.0) L Hematocrit 39.0 % (42-54) L Mean Corpuscular Volume 95.8 fL (79-99) Mean Corpuscular Hemoglobin 32.7 pg (27.0-33.0) Mean Corpuscular Hemoglobin Concent 34.1 g/dL (32.0-36.0) Red Cell Distribution Width 12.3 % (11.0-15.5) Platelet Count 191 K/uL (130-400) Mean Platelet Volume 9.6 fL (7.5-10.5) Immature Granulocyte % (Auto) 0.7 % (0-1) Neutrophils (%) (Auto) 68.4 % (40.0-77.0) Lymphocytes (%) (Auto) 17.8 % (21.0-51.0) L Monocytes (%) (Auto) 8.9 % (3.0-13.0) Eosinophils (%) (Auto) 3.5 % (0.0-8.0) Basophils (%) (Auto) 0.7 % (0.0-5.0) Neutrophils # (Auto) 3.2 K/uL (1.8-7.7) Lymphocytes # (Auto) 0.8 K/uL (1.0-4.8) L Monocytes # (Auto) 0.4 K/uL (0.1-1.0) Eosinophils # (Auto) 0.16 K/uL (0.00-0.70) Basophils # (Auto) 0.03 K/uL (0.00-0.20) Absolute Immature Granulocyte (auto 0.03 K/uL (0-1) Nucleated Red Blood Cells 0.0 % (0.0-0.19) Sodium Level 138 mmol/L (136-145) Potassium Level 3.8 mmol/L (3.5-5.1) Chloride Level 101 mmol/L (101-111) Carbon Dioxide Level 29 mmol/L (21-32) Blood Urea Nitrogen 15 mg/dL (7-18) Creatinine 1.0 mg/dL (0.5-1.3) Glomerular Filtration Rate Calc 80 mL/min (>90) Random Glucose 102 mg/dL (70-105) Total Calcium 8.8 mg/dL (8.5-10.1) Stool Occult Blood POSITIVE (NEGATIVE) H EKG/XRAY/US/CT/MRI X-RAY Comment EXAM: CR Abdomen, 2 View. CLINICAL HISTORY: constipation eval. Hx of hemorrhoids COMPARISON: None provided. FINDINGS: BOWEL: The bowel gas pattern is within normal limits. Abundant colonic fecal matter may reflect constipation. PERITONEUM/SOFT TISSUES: No free air evident. No pathologic appearing calcification. BONES: No acute osseous abnormality. Prior cholecystectomy. IMPRESSION: 1. No acute abdominal findings. /[facility] 70-year-old male here for abdominal pain/rectal pain. He was noted to have hemorrhoids. Patient improved with hemorrhoid cream here in the emergency room. X-ray shows constipation. Advised on diet changes. We will prescribe medications for hemorrhoids. Advised on concerning signs and symptoms for which to return to the emergency room. We will discharge home at this time. Continue to follow up with the PCP ED Course Orders Procedure Category Date Status Time Cbc With Differential LAB 08/13/25 Complete 14:30 Basic Metabolic Panel LAB 08/13/25 Complete 14:30 Occult Blood Stool LAB 08/13/25 Complete Single Only 14:38 Hemorrhoidal Ointment PHA 08/13/25 Complete (Hem-Prep Rectal O 15:00 Abd 1vw RAD 08/13/25 Resulted 14:46 Current Medications Medications (Trade) Dose Ordered Sig/Mik Route PRN Reason Start Time Stop Time Status Last Admin Dose Admin Phenyleph/Shark Oil/Glycerin/ Petrol (Hem-Prep Rectal Oint) 1 gm ONCE ONCE RC 08/13/25 15:00 08/13/25 15:01 DC 08/13/25 15:16 Vital Signs Date Time Temp Pulse Resp B/P (MAP) Pulse Ox O2 Delivery O2 Flow Rate FiO2 08/13/25 16:14 98.4 63 16 121/66 100 Room Air* 0 21 08/13/25 14:54 98.4 72 16 149/78 100 Room Air* 0 21 08/13/25 14:29 98.1 73 18 120/82 98 DX & DISP Disposition: Discharge Departure Impression: Primary Impression: Hemorrhoids Additional Impression: Constipation Condition: Stable Scripts Polyethylene Glycol 3350 (Miralax) 17 Gram Powd.pack 1 PACKET PO DAILY for constipation, #30 PACKET 0 Refills dissolve in water Prov: ALE TREVIÑO MD 08/13/25 Phenyleph/Pramoxin/Glycr/W.pet (Preparation H Cream) 0.25 %-1 % Cream..g. 1 APPL TP BID for 30 Days, #51 GM 0 Refills Prov: ALE TREVIÑO MD 08/13/25 Referrals: KARIE SHINE MD (PCP) ALE TREVIÑO MD Aug 13, 2025 14:43
[2025-08-13 14:57] LABS: IMMATURE GRANULOCYTE ABSOLUTE 0.03 K/uL (0-1); NUCLEATED RED BLOOD CELLS 0.0 % (0.0-0.19); PLATELET COUNT (AUTO) 191 K/uL (130-400); RED BLOOD CELL COUNT(AUTO) 4.07 MIL/uL (4.50-6.20); RED CELL DISTRIBUTION WIDTH 12.3 % (11.0-15.5); WHITE BLOOD COUNT (AUTO) 4.6 K/uL (4.8-10.8)
[2025-08-13 15:06] LABS: CREATININE 1.0 mg/dL (0.5-1.3); GLOMERULAR FILTR. RATE CALC 80.0 mL/min (>90); GLUCOSE,RANDOM 102.0 mg/dL (70-105); SODIUM SERUM 138.0 mmol/L (136-145); UREA NITROGEN, BLOOD 15.0 mg/dL (7-18)
[2025-08-13] MEDS: HEMORRHOIDAL OINTMENT 57 GM CREAM.GM. RC ONE (15:16)
[2025-08-13 16:14] VITALS: BP 121/66; PULSE 63; RESP 16; TEMP 98.4; O2SAT 100
--- NOTE | 2025-08-13 16:22 | HMCIMG ---
EXAM: CR Abdomen, 2 View. CLINICAL HISTORY: constipation eval. Hx of hemorrhoids COMPARISON: None provided. FINDINGS: BOWEL: The bowel gas pattern is within normal limits. Abundant colonic fecal matter may reflect constipation. PERITONEUM/SOFT TISSUES: No free air evident. No pathologic appearing calcification. BONES: No acute osseous abnormality. Prior cholecystectomy. IMPRESSION: 1. No acute abdominal findings. /[place]
[2025-08-13] MEDS ORDERED: POLY17PO4 PO (16:36)
[2025-08-13] MEDS ORDERED: PHEN26CR2 TP (16:36)
== END 2025-08-13 16:45 | disposition home or self-care (01) ==
LOC: EDH 14:26
DX: K64.4 Residual hemorrhoidal skin tags (principal); K59.00 Constipation, unspecified; K62.5 Hemorrhage of anus and rectum; I10 Essential (primary) hypertension; Z90.49 Acquired absence of other specified parts of digestive tract; Z87.19 Personal history of other diseases of the digestive system; Z88.1 Allergy status to other antibiotic agents; Z79.899 Other long term (current) drug therapy; Z85.46 Personal history of malignant neoplasm of prostate
CPT/HCPCS: 36415; 74018; 80048; 82270; 85025; 99284